=== PATIENT | male | born 1995 | race Hispanic/Latino ===

== ENCOUNTER 2017-09-04 15:35 | Emergency (ER) | payer MEDICAID, OTHER ==
[2017-09-04 15:39] VITALS: BP 143/83; PULSE 105; RESP 22; TEMP 98.3; O2SAT 100
--- NOTE | 2017-09-04 16:07 | ED PDOC ---
HPI: Psych/Substance Abuse Time Seen by Provider: 09/04/17 15:55 Chief Complaint (Nursing): Substance Abuse Chief Complaint (Provider): ETOH History Per: Patient History/Exam Limitations: no limitations Onset/Duration Of Symptoms: Days Current Symptoms Are (Timing): Still Present Additional Complaint(s): 22 yo male with found sleeping. Pt reports drinking today. Pt responds to questions. Denies drug use. Pt cooperative in ER. Past Medical History Reviewed: Historical Data, Nursing Documentation, Vital Signs Vital Signs: Last Vital Signs Temp 98.3 F 09/04/17 15:36 Pulse 105 H 09/04/17 15:36 Resp 22 09/04/17 15:36 BP 143/83 09/04/17 15:36 Pulse Ox 100 09/04/17 15:36 - Medical History PMH: No Chronic Diseases - Surgical History Surgical History: No Surg Hx - Family History Family History: States: No Known Family Hx - Living Arrangements Living Arrangements: With Family - Allergies Allergies/Adverse Reactions: Allergies Allergy/AdvReac Type Severity Reaction Status Date / Time No Known Allergies Allergy Verified 09/04/17 15:39 Review of Systems ROS Statement: Except As Marked, All Systems Reviewed And Found Negative Constitutional: Negative for: Fever, Chills Cardiovascular: Negative for: Chest Pain Respiratory: Negative for: Cough, Shortness of Breath Gastrointestinal: Negative for: Nausea, Vomiting, Abdominal Pain Physical Exam - Reviewed Nursing Documentation Reviewed: Yes Vital Signs Reviewed: Yes - Physical Exam Appears: Positive for: Well, Non-toxic, No Acute Distress Head Exam: Positive for: ATRAUMATIC, NORMAL INSPECTION, NORMOCEPHALIC Skin: Positive for: Normal Color, Warm, DRY Eye Exam: Positive for: EOMI, Normal appearance, PERRL ENT: Positive for: Normal ENT Inspection Neck: Positive for: Normal, Painless ROM Cardiovascular/Chest: Positive for: Regular Rate, Rhythm Respiratory: Positive for: Normal Breath Sounds. Negative for: Accessory Muscle Use, Respiratory Distress Back: Positive for: Normal Inspection Extremity: Positive for: Normal ROM Neurologic/Psych: Positive for: Alert, Oriented - ECG O2 Sat by Pulse Oximetry: 100 Medical Decision Making Medical Decision Makin - PT sleeping in room. Abusable to verbal stimulus. 2054 - Clear speech and steady gait. Pt asking to go home. Disposition - Clinical Impression Clinical Impression: Alcohol abuse - Patient ED Disposition Is Patient to be Admitted: No - Disposition Disposition: Routine/Home Disposition Time: 20:56 Condition: GOOD Instructions: Effects of Alcohol on Your Health Forms: [employer] (Indian)
== END 2017-09-04 21:00 | disposition home or self-care (01) ==
LOC: H.ER 15:35
DX: F10.10 Alcohol abuse, uncomplicated (principal)